=== PATIENT | female | born 1975 | race Caucasian/White ===

== ENCOUNTER 2022-04-30 14:48 | Emergency (ER) | payer OTHER ==
[~2022-04-30] VITALS: Ht 177.8 cm; Wt 68.0 kg
[2022-04-30 14:50] VITALS: BP 89/61
--- NOTE | 2022-04-30 14:55 | ED Psychosocial ---
General Chief Complaint: Substance Abuse Stated Complaint: INTOX History of Present Illness Date Seen by Provider: Apr 30, 2022 Time Seen by Provider: 14:54 Initial Comments 47-year-old female with PMH of chronic alcoholism, was brought in by EMS with complaints of alcohol intoxication. Patient was walking to the grocery store as per her boyfriend with a whiskey bottle in her hand and passed out and one of the neighbors front yard with a half empty bottle of whiskey. Patient is alert and oriented in the ER. Denies fever, abdominal pain, nausea, vomiting. Allergies and Home Medications Allergies Coded Allergies: No Known Drug Allergies (Unverified , 04/30/22) Patient Home Medication List Home Medication List Reviewed: Yes Review of Systems Constitutional: no symptoms reported EENTM: no symptoms reported Respiratory: no symptoms reported Cardiovascular: no symptoms reported Gastrointestinal: no symptoms reported Genitourinary: no symptoms reported Musculoskeletal: no symptoms reported Psychiatric/Neurological: Other (intoxicated) Physical Exam Vital Signs - First Documented 04/30/22 14:50 Temp 36.9 Pulse 86 Resp 16 B/P (MAP) 89/61 (70) Pulse Ox 95 O2 Delivery Room Air Capillary Refill : Height, Weight, BMI Height: '" Weight: lbs. oz. kg; BMI Method: General Appearance: WD/WN, no apparent distress HEENT: PERRL/EOMI, normal ENT inspection Neck: non-tender, full range of motion, supple Respiratory: lungs clear Cardiovascular: regular rate, rhythm Gastrointestinal: non tender, soft Neurologic/Psychiatric: no motor/sensory deficits, alert, oriented x 3 Appearance/Memory: appropriate insight, other (intoxicated ) Behavior/Eye Contact: cooperative Skin: normal color Progress/Results/Core Measures Results/Orders Lab Results Laboratory Tests Test 04/30/22 15:00 Range/Units White Blood Count 4.4 4.3-11.0 10^3/uL Red Blood Count 3.60 L 3.80-5.11 10^6/uL Hemoglobin 12.7 11.5-16.0 g/dL Hematocrit 35 35-52 % Mean Corpuscular Volume 97 80-99 fL Mean Corpuscular Hemoglobin 35 H 25-34 pg Mean Corpuscular Hemoglobin Concent 36 32-36 g/dL Red Cell Distribution Width 12.7 10.0-14.5 % Platelet Count 252 130-400 10^3/uL Mean Platelet Volume 8.3 L 9.0-12.2 fL Immature Granulocyte % (Auto) 0 % Neutrophils (%) (Auto) 61 42-75 % Lymphocytes (%) (Auto) 34 12-44 % Monocytes (%) (Auto) 3 0-12 % Eosinophils (%) (Auto) 1 0-10 % Basophils (%) (Auto) 1 0-10 % Neutrophils # (Auto) 2.7 1.8-7.8 10^3/uL Lymphocytes # (Auto) 1.5 1.0-4.0 10^3/uL Monocytes # (Auto) 0.2 0.0-1.0 10^3/uL Eosinophils # (Auto) 0.0 0.0-0.3 10^3/uL Basophils # (Auto) 0.1 0.0-0.1 10^3/uL Immature Granulocyte # (Auto) 0.0 0.0-0.1 10^3/uL Sodium Level 138 135-145 MMOL/L Potassium Level 3.9 3.6-5.0 MMOL/L Chloride Level 101 98-107 MMOL/L Carbon Dioxide Level 24 21-32 MMOL/L Anion Gap 13 5-14 MMOL/L Blood Urea Nitrogen 6 L 7-18 MG/DL Creatinine 0.46 L 0.60-1.30 MG/DL Estimat Glomerular Filtration Rate 118 BUN/Creatinine Ratio 13 Glucose Level 69 L 70-105 MG/DL Calcium Level 8.5 8.5-10.1 MG/DL Corrected Calcium 8.5 8.5-10.1 MG/DL Magnesium Level 1.7 1.6-2.4 MG/DL Total Bilirubin 0.3 0.1-1.0 MG/DL Aspartate Amino Transf (AST/SGOT) 24 5-34 U/L Alanine Aminotransferase (ALT/SGPT) 18 0-55 U/L Alkaline Phosphatase 64 40-136 U/L Total Protein 6.4 6.4-8.2 GM/DL Albumin 4.0 3.2-4.5 GM/DL Salicylates Level < 0.3 L 5.0-20.0 MG/DL Acetaminophen Level < 10 L 10-30 UG/ML Serum Alcohol 381 *H <10 MG/DL My Orders Orders - SARAH STONE MD Acetaminophen (04/30/22 14:55) Alcohol (04/30/22 14:55) Cbc With Automated Diff (04/30/22 14:55) Comprehensive Metabolic Panel (04/30/22 14:55) Drug Screen Stat (Urine) (04/30/22 14:55) Magnesium (04/30/22 14:55) Salicylate (04/30/22 14:55) Ua Culture If Indicated (04/30/22 14:55) Ed Iv/Invasive Line Start (04/30/22 14:55) Thiamine Injection (Vitamin B-1 Injectio (04/30/22 15:06) Folic Acid Tablet (Folic Acid Tablet) (04/30/22 15:15) Vital Signs/I&O 04/30/22 14:50 Temp 36.9 Pulse 86 Resp 16 B/P (MAP) 89/61 (70) Pulse Ox 95 O2 Delivery Room Air Progress Progress Note : Progress Note 1. ALCOHOL INTOXICATION: - s. ETOH: 381 - Drug screen - CBC/ CMP unremarkable - UA - NS IVF bolus STAT - Thiamine iv/ Folic acid normal - CIWA scoring - Pt left AMA in spite of explaining risks and benefits Departure Impression Primary Impression: Acute alcoholic intoxication Qualified Codes: F10.920 - Alcohol use, unspecified with intoxication, uncomplicated Disposition: 07 AGAINST MEDICAL ADVICE Condition: Against Medical Advice Departure-Patient Inst. Patient Instructions: ALCOHOL AND SUBSTANCE ABUSE SARAH STONE MD Apr 30, 2022 14:55
[2022-04-30 15:04] LABS: BASOPHILS # (AUTO) 0.1 10^3/uL (0.0-0.1); BASOPHILS % (AUTO) 1 % (0-10); EOSINOPHILS % (AUTO) 1 % (0-10); HEMATOCRIT 35 % (35-52); HEMOGLOBIN 12.7 g/dL (11.5-16.0); LYMPHOCYTES # (AUTO) 1.5 10^3/uL (1.0-4.0); LYMPHOCYTES % (AUTO) 34 % (12-44); MEAN CORPUSCULAR HEMOGLOBIN 35 pg (25-34); MEAN CORPUSCULAR HGB CONC 36 g/dL (32-36); MEAN CORPUSCULAR VOLUME 97 fL (80-99); MEAN PLATELET VOLUME 8.3 fL (9.0-12.2); MONOCYTES # (AUTO) 0.2 10^3/uL (0.0-1.0); MONOCYTES % (AUTO) 3 % (0-12); NEUTROPHILS # (AUTO) 2.7 10^3/uL (1.8-7.8); NEUTROPHILS % (AUTO) 61 % (42-75); PLATELET COUNT 252 10^3/uL (130-400); WHITE BLOOD COUNT 4.4 10^3/uL (4.3-11.0)
[2022-04-30] MEDS ORDERED: THIAMINE INJECTION 100 MG in NS (IVPB) 50 ML IV STA (15:06)
[2022-04-30] MEDS ORDERED: FOLIC ACID 1 MG TAB PO ONE (15:15)
[2022-04-30 15:27] LABS: BUN/CREATININE RATIO 13; CARBON DIOXIDE 24 MMOL/L (21-32); CHLORIDE 101 MMOL/L (98-107); CREATININE SERUM 0.46 MG/DL (0.60-1.30); GFR ESTIMATED 118; GLUCOSE 69 MG/DL (70-105); POTASSIUM 3.9 MMOL/L (3.6-5.0); SODIUM 138 MMOL/L (135-145)
[2022-04-30 15:28] LABS: ACETAMINOPHEN < 10 UG/ML (10-30); ALANINE AMINOTRANSFERASE 18 U/L (0-55); ALKALINE PHOSPHATASE 64 U/L (40-136); BILIRUBIN,TOTAL 0.3 MG/DL (0.1-1.0); CALCIUM 8.5 MG/DL (8.5-10.1); MAGNESIUM 1.7 MG/DL (1.6-2.4); SALICYLATE < 0.3 MG/DL (5.0-20.0); TOTAL PROTEIN 6.4 GM/DL (6.4-8.2)
== END 2022-04-30 15:20 | disposition left against medical advice (07) ==
LOC: ER FS 14:54 → EDBD 14:54 → ER FS 15:20
DX: F10.129 Alcohol abuse with intoxication, unspecified (principal)
CPT/HCPCS: 36415; 80053; 83735; 85025; 99284; G0480 ×3; 80320; 80329